=== PATIENT | male | born 1955 | race Caucasian/White ===

== ENCOUNTER → 2018-02-01 | Outpatient (REF) | payer MEDICARE ==
[~2018-02-01] MED LIST: LEVO500T PO; SENO8.6T9 PO
[2018-02-01 14:20] LABS: FOLATE > 24.0 NG/ML (>5.4); TOTAL PROTEIN 6.9 GM/DL (6.4-8.2); VITAMIN B12 LEVEL 722 PG/ML (247-911)
[2018-02-01 16:01] LABS: HEMOGLOBIN A1c 6.2 %
[2018-02-02 11:37] LABS: ALBUMIN 3.93 GM/DL (3.29-5.55); ALPHA-1-GLOBULIN % 4.4 % (2.9-4.9); ALPHA-2-GLOBULINS % 9.4 % (7.1-11.8); BETA-1-GLOBULINS % 6.8 % (4.7-7.2); BETA-2-GLOBULINS % 6.1 % (3.2-6.5); GAMMA GLOBULIN % 16.3 % (11.1-18.8)
[2018-02-02 11:38] LABS: ALPHA-2-GLOBULINS 0.65 GM/DL (0.42-0.99); BETA-1-GLOBULINS 0.47 GM/DL (0.28-0.60); BETA-2-GLOBULINS 0.42 GM/DL (0.19-0.55); GAMMA GLOBULINS 1.12 GM/DL (0.65-1.58)
[2018-02-03 08:06] LABS: CERULOPLASMIN 26.7 mg/dL (16.0-31.0); COPPER PLASMA 100 ug/dL (72-166); LEAD BLOOD ADULT <1 ug/dL (0-4); MERCURY LEVEL None Detected ug/L (0.0-14.9)
== END | disposition home or self-care (01) ==
LOC: M LABNEURO 10:07
PROVIDERS: ATTEND Psychiatry & Neurology Neurology
DX: K21.9 Gastro-esophageal reflux disease without esophagitis (principal); D51.9 Vitamin B12 deficiency anemia, unspecified; Z13.88 Encounter for screening for disorder due to exposure to contaminants

== ENCOUNTER → 2019-02-04 | Outpatient (REF) | payer MEDICARE ==
[2019-02-04 18:49] LABS: APPEARANCE, URINE CLEAR (CLEAR); BACTERIA, URINE AUTO NEGATIVE (NEGATIVE); BILIRUBIN, URINE AUTO NEGATIVE (NEGATIVE); BLOOD, URINE BLOOD NEGATIVE (NEGATIVE); COLOR, URINE YELLOW (YELLOW); GLUCOSE, URINE (UA) AUTO NEGATIVE (NEGATIVE); KETONE, URINE AUTO NEGATIVE (NEGATIVE); LEUKOCYTE ESTERASE, URINE AUTO NEGATIVE (NEGATIVE); NITRITE, URINE AUTO NEGATIVE (NEGATIVE); PROTEIN, URINE AUTO NEGATIVE (NEGATIVE); RBC, URINE AUTO 0 /HPF (0-3); SPECIFIC GRAVITY URINE AUTO 1.018 (1.002-1.035); SQUAMOUS EPITHELIAL CELL UR AU 0 /HPF (0-6); UROBILINOGEN, URINE AUTO 0.2 mg/dL (0.0-2.0); WBC, URINE AUTO 1 /HPF (0-3)
== END ==
LOC: M SMT 17:51
PROVIDERS: ATTEND Nurse Practitioner Women's Health
DX: R35.0 Frequency of micturition (principal)
CPT/HCPCS: 51798; 81001; 87086; G0463

== ENCOUNTER 2024-12-06 09:27 | Inpatient (IN) | payer MEDICARE ==
[~2024-12-06] VITALS: Ht 167.6 cm; Wt 69.5 kg
[~2024-12-06 09:27] MED LIST changes: +ACYC-438 PO; +ALLO100T; +ASPI81TA26 PO; +DICL100G10 TOP; +GABA-1171 PO; +HYDR-643 PO; +MAGN400T2 PO; +PANT40TA29 PO; +POLY17PO18 PO; +SENN-186 PO; +VITAMIN D PO
[2024-12-06 10:12] LABS: VENOUS BASE EXCESS -2.5 (-2.0-2.0); VENOUS HCO3 22.6 MMOL/L (23.0-27.0); VENOUS O2 SATURATION 82.5 % (60.0-80.0); VENOUS PARTIAL PRESSURE CO2 40.0 mmHg (38.0-50.0); VENOUS PARTIAL PRESSURE O2 50.0 mmHg (30.0-50.0); VENOUS PH 7.370 UNITS (7.330-7.430); VENOUS STANDARD HCO3 22.1 MMOL/L; VENOUS TOTAL CO2 23.8 MMOL/L (24.0-28.0)
[2024-12-06 10:22] LABS: PLATELET COUNT, AUTOMATED 237 10^3/uL (150-450)
[2024-12-06] MEDS: cefTRIAXone SOD 1 GM in DEXTROSE 5% (D5W) ADV/MINI-BAG 50 ML IV ONE (10:25)
[2024-12-06] MEDS: NS (Normal Saline) 0.9% 1,000 ML IV ONE (10:26)
[2024-12-06 10:43] LABS: ATYPICAL LYMPH 5 % (0-5); EOSINOPHILS 7 % (0-3); LYMPHOCYTES 7 % (16-44); MONOCYTES 15 % (0-5); NEUTROPHILS 61 % (28-66); PLATELET ESTIMATE NORMAL (NORMAL)
[2024-12-06 10:45] LABS: ALT/SGPT 22 U/L (7.0-40); AST/SGOT 13 U/L (<34); CALCIUM LEVEL 8.0 MG/DL (8.3-10.6); CARBON DIOXIDE LEVEL 25 MMOL/L (20-31); CHLORIDE LEVEL 109 MMOL/L (98-107); CREATININE FOR GFR 1.26 MG/DL (0.70-1.30); GLOMERULAR FILTRATION RATE 62.5 (>49); LDH LACTATE DEHYDROGENASE 193 U/L (120-246); MAGNESIUM LEVEL 2.0 MG/DL (1.8-2.4); POTASSIUM SERUM 4.0 MMOL/L (3.5-5.1); SALICYLATE LEVEL < 3.0 MG/DL (<30); SODIUM LEVEL 142 MMOL/L (136-145)
[2024-12-06 10:46] LABS: IRON (FE) 18 UG/DL (65-175); PERCENT SATURATION 7.3 % (19.7-50.0)
[2024-12-06 10:47] LABS: ETHYL ALCOHOL (ETHANOL) < 0.003 % (0.000-0.010); VITAMIN B12 LEVEL 456 PG/ML (211-911)
[2024-12-06] MEDS: NS (Normal Saline) 0.9% 1,970 ML in IV 1 EA IV ONE (10:53)
[2024-12-06 10:58] LABS: OSMOLALITY SERUM 309 MOSM/KG (280-301)
[2024-12-06 12:40] LABS: KETONE, URINE AUTO RFX NEGATIVE (NEGATIVE); LEUKOCYTE ESTERASE UR AUTO RFX NEGATIVE (NEGATIVE); MUCUS, URINE RFX SMALL (NEGATIVE); NITRITE, URINE AUTO RFX NEGATIVE (NEGATIVE); RBC, URINE AUTO RFX 12 /HPF (0-3); SQUAM EPITHELIAL CELL UR AURFX 0 /HPF (0-6); WBC, URINE AUTO RFX 5 /HPF (0-3)
[2024-12-06 13:00] LABS: AMPHETAMINES LEVEL URINE NEGATIVE (NEGATIVE); BARBITURATES URINE NEGATIVE (NEGATIVE); BENZODIAZEPINES URINE NEGATIVE (NEGATIVE); CANNABINOIDS URINE NEGATIVE (NEGATIVE); COCAINE METABOLITE URINE NEGATIVE (NEGATIVE); METHADONE URINE NEGATIVE (NEGATIVE); OPIATES URINE NEGATIVE (NEGATIVE); PHENCYCLIDINE URINE NEGATIVE (NEGATIVE)
[2024-12-06] MEDS ORDERED: D-10TAB2 PO (13:53)
[2024-12-06] MEDS ORDERED: HOME MED LIST COMPLETE! XX SCH (13:55)
[2024-12-06] MEDS: DIGOXIN INJ 0.5 MG/2 ML AMP IV STA ×2 (14:04→15:08)
[2024-12-06] MEDS ORDERED: MIRALAX *UNIT DOSE* 17 GM PACKET PO PRN (16:20)
[2024-12-06] MEDS ORDERED: SENNA 8.6 MG TAB PO PRN (16:20)
[2024-12-06] MEDS: NS (Normal Saline) 0.9% 1,000 ML IV SCH (17:35)
[2024-12-06 19:57] VITALS: BP 110/64; TEMP 97.7; O2SAT 96
[2024-12-06] MEDS: ACYCLOVIR 200 MG CAPSULE PO SCH (20:54)
[2024-12-06 23:13] VITALS: BP 107/59; PULSE 80; O2SAT 95
[2024-12-06 23:15] VITALS: BP 107/59; TEMP 99; O2SAT 95
[2024-12-06] MEDS: DIGOXIN 0.25 MG TAB PO ONE (23:30)
[2024-12-06] MEDS: ACETAMINOPHEN 325 MG TAB PO PRN (23:32)
[2024-12-07] VITALS (7 sets, daily range): BP systolic 100–139; BP diastolic 47–72; TEMP 97.2–99.5; O2SAT 93–98
[2024-12-07 05:19] LABS: PLATELET COUNT, AUTOMATED 180 10^3/uL (150-450)
[2024-12-07 05:57] LABS: ALT/SGPT 14.0 U/L (7.0-40); AST/SGOT 8.0 U/L (<34); CALCIUM LEVEL 6.9 MG/DL (8.3-10.6); CARBON DIOXIDE LEVEL 22.0 MMOL/L (20-31); CHLORIDE LEVEL 116.0 MMOL/L (98-107); CREATININE FOR GFR 1.07 MG/DL (0.70-1.30); GLOMERULAR FILTRATION RATE 76.1 (>49); POTASSIUM SERUM 4.0 MMOL/L (3.5-5.1); SODIUM LEVEL 145.0 MMOL/L (136-145)
[2024-12-07] MEDS: DIGOXIN 0.25 MG TAB PO ONE (06:15)
[2024-12-07] MEDS: MAGNESIUM OXIDE 400 MG TAB PO SCH (09:11)
[2024-12-07] MEDS: ASPIRIN 81 MG ENTERIC TABLET PO SCH (09:11)
[2024-12-07] MEDS: PANTOPRAZOLE 40MG TAB PO SCH (09:11)
[2024-12-07] MEDS: FLUZONE HIGH DOSE (65+) 0.5 ML SYRINGE (25-26) IM.IMMUN ONE (11:44)
[2024-12-07] MEDS ORDERED: GABAPENTIN 100 MG CAP PO PRN (15:10)
[2024-12-08] VITALS (10 sets, daily range): BP systolic 99–148; BP diastolic 60–77; PULSE 76; TEMP 97.6–99; O2SAT 94–98
[2024-12-08 00:17] LABS: T P ELECTROPHORESIS SO 5.1 g/dL (6.1-8.1)
[2024-12-08 05:37] LABS: PLATELET COUNT, AUTOMATED 195 10^3/uL (150-450)
[2024-12-08 06:12] LABS: ALT/SGPT 11.0 U/L (7.0-40); AST/SGOT 9.0 U/L (<34); CALCIUM LEVEL 7.3 MG/DL (8.3-10.6); CARBON DIOXIDE LEVEL 22.0 MMOL/L (20-31); CHLORIDE LEVEL 112.0 MMOL/L (98-107); CREATININE FOR GFR 1.08 MG/DL (0.70-1.30); GLOMERULAR FILTRATION RATE 75.2 (>49); POTASSIUM SERUM 3.8 MMOL/L (3.5-5.1); SODIUM LEVEL 141.0 MMOL/L (136-145)
[2024-12-08] MEDS: DIGOXIN 0.125 MG TAB PO SCH (08:07)
[2024-12-08] MEDS: LACTULOSE 20 GM/30 ML SYRUP UDC PO ONE (08:08)
[2024-12-08] MEDS: DOCUSATE SODIUM 100 MG CAPSULE PO SCH (08:08)
[2024-12-08 08:26] LABS: CK-MB VALUE MASS < 1.0 NG/ML (<3.6)
[2024-12-08 08:27] LABS: CPK CREATINE PHOSPHOKINASE 23 U/L (46-171); MAGNESIUM LEVEL 1.7 MG/DL (1.8-2.4); PHOSPHORUS LEVEL 2.9 MG/DL (2.4-5.1)
[2024-12-08 14:37] LABS: CHOLESTEROL LEVEL 126.0 MG/DL (<200); CHOLESTEROL RISK RATIO 4.71 (<5); LDL CHOLESTEROL 79.3 MG/DL (<100); NON-HDL-C 99.3 MG/DL; TRIGLYCERIDES LEVEL 100.0 MG/DL (<150)
[2024-12-08 15:06] LABS: ESTIMATED AVERAGE GLUCOSE 117.0 MG/DL (60-110)
[2024-12-08] MEDS: MAG SULF 1GM/100ML (MAG RUN) 1 GM in IV 1 EA IV SCH (17:58)
[2024-12-08] MEDS: SENNA 8.6 MG TAB PO SCH (20:18)
[2024-12-09] VITALS (7 sets, daily range): BP systolic 113–152; BP diastolic 63–76; TEMP 97–98.5; O2SAT 93–96
[2024-12-09 06:37] LABS: PLATELET COUNT, AUTOMATED 195 10^3/uL (150-450)
[2024-12-09 07:11] LABS: CPK CREATINE PHOSPHOKINASE 18 U/L (46-171)
[2024-12-09 07:12] LABS: ALT/SGPT 11 U/L (7.0-40); AST/SGOT 9 U/L (<34); CALCIUM LEVEL 7.3 MG/DL (8.3-10.6); CARBON DIOXIDE LEVEL 24 MMOL/L (20-31); CHLORIDE LEVEL 109 MMOL/L (98-107); CK-MB VALUE MASS < 1.0 NG/ML (<3.6); CREATININE FOR GFR 1.06 MG/DL (0.70-1.30); GLOMERULAR FILTRATION RATE 76.9 (>49); POTASSIUM SERUM 3.8 MMOL/L (3.5-5.1); SODIUM LEVEL 142 MMOL/L (136-145)
[2024-12-09] MEDS ORDERED: DIGO0.123 PO (11:59)
[2024-12-09 14:12] LABS: FREE KAPPA LIGHT CHAINS SERUM 14.8 mg/L (3.3-19.4); FREE LAMBDA LIGHT CHAINS SERUM 3.7 mg/L (5.7-26.3); KAPPA/LAMBDA RATIO SERUM 4.00 (0.26-1.65)
[2024-12-10 04:58] VITALS: BP 124/70; TEMP 97.9; O2SAT 94
[2024-12-10 08:04] LABS: PLATELET COUNT, AUTOMATED 209 10^3/uL (150-450)
[2024-12-10 08:37] LABS: ALT/SGPT 10.0 U/L (7.0-40); AST/SGOT 11.0 U/L (<34); CALCIUM LEVEL 7.7 MG/DL (8.3-10.6); CARBON DIOXIDE LEVEL 23.0 MMOL/L (20-31); CHLORIDE LEVEL 109.0 MMOL/L (98-107); CREATININE FOR GFR 1.02 MG/DL (0.70-1.30); GLOMERULAR FILTRATION RATE 80.6 (>49); POTASSIUM SERUM 4.0 MMOL/L (3.5-5.1); SODIUM LEVEL 142.0 MMOL/L (136-145)
[2024-12-10 09:33] LABS: ALBUMIN SPEP 2.6 g/dL (3.8-4.8); ALPHA-1-GLOBULINS SO 0.5 g/dL (0.2-0.3); ALPHA-2-GLOBULINS SO 0.8 g/dL (0.5-0.9); BETA 2 GLOBULIN 0.3 g/dL (0.2-0.5); BETA-GLOBULIN SO 0.4 g/dL (0.4-0.6); GAMMA GLOBULINS SO 0.5 g/dL (0.8-1.7); SPEP ABN PROTEIN BAND 1 0.4 g/dL (NONE DETECTED)
[2024-12-11 15:41] LABS: FREE KAPPA LIGHT CHAINS URINE 59.03 mg/L (<=32.90); FREE LAMBDA LIGHT CHAINS URINE 7.51 mg/L (<=3.79); KAPPA/LAMBDA RATIO URINE 7.86 (<=8.69)
== END 2024-12-10 12:07 | disposition home or self-care (01) | DRG 71 ==
LOC: M ED 09:27 → M ED INP 09:28 → M PCU 17:06 → OBSVTOIN 12-07 14:54 → M MS4PR 12-09 23:49
PROVIDERS: ADMIT Internal Medicine; ATTEND Student in an Organized Health Care Education/Training Program
DX: G93.41 Metabolic encephalopathy (principal); C90.00 Multiple myeloma not having achieved remission; I48.92 Unspecified atrial flutter; D64.81 Anemia due to antineoplastic chemotherapy; D50.9 Iron deficiency anemia, unspecified; D69.6 Thrombocytopenia, unspecified; I95.89 Other hypotension; R07.9 Chest pain, unspecified; Z92.3 Personal history of irradiation; Z87.820 Personal history of traumatic brain injury; Z79.899 Other long term (current) drug therapy; Z79.82 Long term (current) use of aspirin; M54.2 Cervicalgia; R73.03 Prediabetes